=== PATIENT | female | born 1970 | race Caucasian/White ===

== ENCOUNTER 2018-03-16 09:41 | Emergency (ER) | payer BC ==
[~2018-03-16] VITALS: Ht 170.2 cm; Wt 133.0 kg
[~2018-03-16 09:41] MED LIST: ATOR10TA PO; ECASA PO; LISI-357 PO
[2018-03-16 09:43] VITALS: BP 171/80; PULSE 80; RESP 18; TEMP 98; O2SAT 98
[2018-03-16] MEDS ORDERED: ATOR10TA15 PO (09:55)
[2018-03-16] MEDS ORDERED: CITA40TA4 PO (09:55)
[2018-03-16] MEDS ORDERED: LISI-519 PO (09:55)
--- NOTE | 2018-03-16 09:59 | PD ---
HPI Chief Complaint: Musculoskeletal Complaint Time Seen by Provider: 09:51 Travel History International Travel<30 days: No Contact w/Intl Traveler<30days: No Traveled to known affect area: No History of Present Illness HPI 47-year-old female presents to the emergency department for evaluation of left knee pain and lower back pain after she tripped and fell this morning. Patient denies any head injury or LOC. No neck pain. No chest pain or abdominal pain. No vomiting. Patient states she was ambulatory. Current pain is 5/10, worse with movement and ambulation. Relieved with keeping still. She is not on anticoagulants. She denies reporting history of partial hysterectomy. Mild severity. PFSH Past Medical History Blood Disorders: No Cancer: No Cardiovascular Problems: No High Cholesterol: Yes Chemotherapy: No Cerebrovascular Accident: Yes (TIA 2005) Diabetes: No Diminished Hearing: No Endocrine: Yes (HYPOGLYCEMIC) Gastrointestinal Disorders: No Glaucoma: No Genitourinary: No Hepatitis: No Hiatal Hernia: No Hypertension: No Immune Disorder: No Musculoskeletal: No Neurologic: Yes Psychiatric: No Reproductive: No Respiratory: No Immunizations Current: No Radiation Therapy: No Thyroid Disease: No ?: Not Tubal Ligation: Yes (1989) Past Surgical History Abdominal Surgery: No AICD: No Cardiac Surgery: No Ear Surgery: No Endocrine Surgery: No Eye Surgery: No Genitourinary Surgery: Yes (bladder sling 05/22) Gynecologic Surgery: Yes (tubal ligation , partial hist. ) Hysterectomy: Yes Joint Replacement: No Neurologic Surgery: No Oral Surgery: No Pacemaker: No Thoracic Surgery: No Other Surgery: Yes Social History Alcohol Use: No Tobacco Use: No Substance Use: No Allergies-Medications (Allergen,Severity, Reaction): Coded Allergies: No Known Allergies (Verified Adverse Reaction, Unknown, 03/16/18) Reported Meds & Prescriptions Reported Meds & Active Scripts Active Reported Citalopram (Citalopram Hydrobromide) 40 Mg Tab 40 Mg PO DAILY Lisinopril 5 Mg Tab 5 Mg PO DAILY Atorvastatin (Atorvastatin Calcium) 10 Mg Tab 10 Mg PO HS Review of Systems Except as stated in HPI: all other systems reviewed are Neg Physical Exam Narrative GENERAL: Well-nourished, well-developed female patient, afebrile. SKIN: Focused skin assessment warm/dry. HEAD: Normocephalic. Atraumatic. ENT: Mucosa pink and moist. No erythema or exudates. No uvular edema. No uvular , palatal, or tonsillar deviation. Airway patent. Nasal turbinates appear normal without nasal blood, purulent drainage or septal hematoma. Bilateral tympanic membranes clear without erythema or perforation. EYES: No scleral icterus. No injection or drainage. NECK: Supple, trachea midline. No JVD or lymphadenopathy. CARDIOVASCULAR: Regular rate and rhythm without murmurs, gallops, or rubs. Left pedal pulses 2+. RESPIRATORY: Breath sounds equal bilaterally. No accessory muscle use. Lung sounds are clear to auscultation. GASTROINTESTINAL: Abdomen soft, non-tender, nondistended. MUSCULOSKELETAL: No cyanosis, or edema. Patient is tenderness over left anterior knee with reduced flexion due to pain. BACK: No without obvious deformity. No CVA tenderness. No bony crepitus or step -off. Mild tenderness over lower back. Data Data Last Documented VS Vital Signs Date Time Temp Pulse Resp B/P (MAP) Pulse Ox O2 Delivery O2 Flow Rate FiO2 03/16/18 09:43 98.0 80 18 171/80 (110) 98 Orders Orders Spine, Lumbar - Ltd (Ap & Lat) (03/16/18 ) Knee, Complete (4vws) (03/16/18 ) Ketorolac Inj (Toradol Inj) (03/16/18 10:00) Splint Or Brace Apply/Monitor (03/16/18 10:47) Crutches (03/16/18 10:47) MDM Medical Decision Making Medical Screen Exam Complete: Yes Emergency Medical Condition: Yes Medical Record Reviewed: Yes Interpretation(s) Last 24 hours Impressions Lumbar Spine X-Ray 03/16/18 0000 Signed Impressions: Service Date/Time: Friday, March 16, 2018 10:08 - CONCLUSION: No acute lumbar spine abnormality is identified. There is degenerative disc disease at L5-S1. Leon Love MD Knee X-Ray 03/16/18 0000 Signed Impressions: Service Date/Time: Friday, March 16, 2018 10:08 - CONCLUSION: No acute abnormality is identified. Leon Love MD Differential Diagnosis Muscle strain versus spasm versus contusion versus fracture versus dislocation Narrative Course 47-year-old female presents to the emergency department for evaluation of lower back pain and left knee pain after a trip and fall this morning. She appears well on exam. Patient is given Toradol 60 mg IM. X-ray left knee and lumbar spine are ordered and pending. Ice pack is applied. X-ray left knee shows no acute abnormality. X-ray lumbar spine shows no acute lumbar spine abnormality. Patient is provided Andrew bandage and crutches. She has a prescription for diclofenac at home that she is encouraged to take. Patient is to follow-up with her primary care physician return for any acute worsening of symptoms. Diagnosis Primary Impression: Low back pain Qualified Codes: M54.5 - Low back pain Additional Impression: Contusion of left knee Qualified Codes: S80.02XA - Contusion of left knee, initial encounter Referrals: Primary Care Physician call for appointment Patient Instructions: Contusion in Adults (ED), General Instructions, Low Back Strain (ED) Departure Forms: Tests/Procedures, Work Release Enter return to work date: March 17, 2018 Additional Instructions: Ice for 20 minutes 4-5 times daily. Wear andrew bandage and use crutches as needed for support. Take your diclofenac or [id number] Aleve as needed for pain. Elevate your left leg when possible. Follow-up with a primary care physician. Return to the emergency department for any acute worsening of symptoms. Med/Other Pt SpecificInfo: No Change to Meds Disposition: 01 DISCHARGE HOME Condition: Stable Shereen Burt March 16, 2018 09:59
[2018-03-16] MEDS ORDERED: KETOROLAC TROMETHAMINE 60 MG/2 ML (IM) VIAL IM ONE (10:00)
--- NOTE | 2018-03-16 10:36 | RADRPT ---
EXAM DATE/TIME: 03/16/2018 10:08 [facility] COMPARISON: No previous studies available for comparison. INDICATIONS : Fell today, has low back pain MEDICAL HISTORY : None. SURGICAL HISTORY : Tubal ligation. ENCOUNTER: Initial ACUITY: 1 day PAIN SCORE: 7/10 LOCATION: Bilateral low back FINDINGS: 4 views of the lumbar spine demonstrate 5 [id number] lumbar vertebral bodies. No fracture or com pression deformity is present. There is no anterolisthesis or retrolisthesis. Small endplate osteophy ksenia are present anteriorly in the inferior lumbar spine. There is facet hypertrophy at L4-L5 and L5-S 1. Decreased disc height is present at L5-S1. Visualized pelvic bones, sacroiliac joints, and soft tissues demonstrate no acute finding. CONCLUSION: No acute lumbar spine abnormality is identified. There is degenerative disc disease at L5-S1. Leon Love MD on March 16, 2018 at 10:33 Board Certified Radiologist. This report was verified electronically.
--- NOTE | 2018-03-16 10:37 | RADRPT ---
EXAM DATE/TIME: 03/16/2018 10:08 [facility] COMPARISON: No previous studies available for comparison. INDICATIONS : Fell today, has left knee area pain MEDICAL HISTORY : None. SURGICAL HISTORY : Tubal ligation. ENCOUNTER: Initial ACUITY: 1 day PAIN SCORE: 7/10 LOCATION: Left knee FINDINGS: Four views of the left knee demonstrate no fracture or dislocation. No joint effusion is present. The re is no significant arthropathy and mineralization is within normal limits. No soft tissue abnormali ty or radiopaque foreign body is identified. CONCLUSION: No acute abnormality is identified. Leon Love MD on March 16, 2018 at 10:35 Board Certified Radiologist. This report was verified electronically.
== END 2018-03-16 10:58 | disposition home or self-care (01) ==
LOC: PHEFT 09:41
DX: M54.5 Low back pain (principal); E78.00 Pure hypercholesterolemia, unspecified; Z86.73 Personal history of transient ischemic attack (TIA), and cerebral infarction without residual deficits; S80.02XA Contusion of left knee, initial encounter; W01.0XXA Fall on same level from slipping, tripping and stumbling without subsequent striking against object, initial encounter
CPT/HCPCS: 72100; 73564; 96372; 99284; E0113; J1885